=== PATIENT | male | born 1975 | race Caucasian/White ===

== ENCOUNTER 2020-11-14 13:22 | Emergency (ER) | payer OTHER, SELFPAY ==
--- NOTE | ~2020-11-14 | XR_ITS ---
EXAMINATION: XR THORACIC SPINE CLINICAL INFORMATION: Posterior back/rib cage pain. COMPARISON: None TECHNIQUE: 3 views of the thoracic spine were obtained. FINDINGS: There is smooth S-shaped scoliosis of dorsolumbar spine. Thoracic kyphosis is maintained normal. No visible acute fracture, dislocation or lytic process seen. The paravertebral soft tissues are normal. XR/XR thoracic spine 3V IMPRESSION: Mild scoliosis of dorsal lumbar spine. No visible acute fracture or dislocation seen.
--- NOTE | ~2020-11-14 | XR_ITS ---
EXAMINATION: XR RIBS, LEFT CLINICAL INFORMATION: Posterior back and rib cage pain COMPARISON: None TECHNIQUE: 3 views of the left ribs were obtained. PA film of the chest. FINDINGS: Lungs are clear. No consolidation, pneumothorax, or pleural effusion. The cardiomediastinal silhouette and pulmonary vasculature are normal. Osseous structures are unremarkable. Ribs are intact. No fractures are identified. XR/XR ribs LT min 3V w CXR1V IMPRESSION: Unremarkable examination.
[2020-11-14 14:01] VITALS: BP 109/77; PULSE 67; RESP 16; TEMP 36.6; O2SAT 97; BMI 26.2
[2020-11-14] MEDS: Cyclobenzaprine HCl 10 MG TABLET PO (14:38)
[2020-11-14] MEDS: NaPROXEN 500 MG TABLET PO (14:38)
--- NOTE | 2020-11-14 15:20 | ED_ITS ---
HPI - Back Pain/Injury General Chief Complaint: Back Pain/Injury Stated Complaint: side pain Time Seen by Provider: 11/14/20 14:12 Source: patient and family (Significant other at bedside) Mode of arrival: ambulatory Limitations: language barrier (gambian speaking ) History of Present Illness HPI Narrative: 44-year-old male presenting to the ED with complaints of mid left-sided back pain intermittently over the past few days worse today. Reports that it is worse with movement. 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 MD elicited complaint: back pain Onset (ago): day(s) Timing: intermittent Severity: moderate Similar Symptoms Previously: No Quality: aching Location: left upper back Radiation: none Exacerbating factors: movement and lifting Relieving factors: immobilization Context: while lifting, turning/twisting and bending Associated symptoms: denies other symptoms Related Data Previous Rx's Medication Instructions Recorded acetaminophen 500 mg tablet 1,000 mg PO QID PRN #14 tab 11/14/20 (Tylenol Extra Strength) cyclobenzaprine 10 mg tablet 10 mg PO Q8H #10 tab 11/14/20 lidocaine HCl 4 % topical cream 1 appl TOPICAL BID PRN #120 g 11/14/20 (Aspercreme (lidocaine HCl)) naproxen 500 mg tablet 500 mg PO BID PRN #10 tab 11/14/20 Allergies Allergy/AdvReac Type Severity Reaction Status Date / Time No Known Allergies Allergy Verified 11/14/20 14:03 Review of Systems Review of Systems: Constitutional : No trauma, No Weight loss, No Fever, No Chills, ENT/Mouth : No Hearing loss, No Ear Pain, No Nasal Congestion, No Sinus Pain, No Hoarseness, No sore throat, No Rhinorrhea, No Swallowing Difficulty Cardiovascular : No Chest Pain, No SOB Respiratory : No Cough, No Dyspnea Gastrointestinal : No Nausea, No Vomiting, No Diarrhea, No abdominal Pain, No Hematochezia, No Melena Genitourinary : No Dysuria, No Urinary Frequency, No Hematuria, No Urinary or Bowel Incontinence/retention Musculoskeletal : + Back pain, No neck pain, No joint stiffness, No joint swelling Skin : No Skin Lesions, No rash or signs of infection Neuro : No Weakness, No radiation, No Numbness, No Paresthesias, No headache, no loss of bowel or bladder incontinence, no saddle anesthesia, Focal weakness, No radiation Denies history of IV drug usage. Yes all other systems are reviewed and are negative [facility] Past Medical History Attestation statement: The following information was validated with the patient. Medical History No known health problems Social History Social History Advance Directives: No Advance Directives Information Provided: No Physical Exam Vital Signs: Vital Signs: Last Vital Signs Temp 97.8 F 11/14/20 14:01 Pulse 67 11/14/20 14:01 Resp 16 11/14/20 14:01 BP 109/77 11/14/20 14:01 Pulse Ox 97 11/14/20 14:01 Body Mass Index 26.2 vital signs have been reviewed as normal and appeared to be correct. Blood pressure normal. Heart rate normal. Respiration rate normal. Temperature normal. Oxygen saturation normal. Appearance: Alert. Oriented X3. No acute distress. Head: Normal external exam. Normocephalic. Atraumatic. Eyes: PERRLA. EOMI. Conjunctiva and sclera normal. Eyelids normal. ENT: Pharynx normal. Uvula midline. Moist mucous membranes. Neck: Normal inspection. Neck supple. FROM. No adenopathy. Thyroid Normal. No meningeal signs. No neck mass noted. CVS: Normal heart rate and rhythm. Heart sound normal. No murmurs noted. Pulses normal throughout. Respiratory: No respiratory distress. Painless inspiration. Breath sounds normal. No wheezes/rales/rhonchi noted. Chest nontender. No accessory muscle usage noted or decreased air movement noted. Abdomen: Soft and nontender. Bowel sounds normal in all 4 quadrants. No distention noted. No organomegaly noted. No visible injury noted. Back: No CVA tenderness. Full range of motion noted. No obvious deformities, or edema. Mild para-spinal muscular tenderness from thoracic to lumbar region to coccyx. Full ROM in back and lower extremities. 5/5 strength hip extension/flexion, abduction, adduction. Mild Lumbar pain with hip flexion against resistance. Straight leg raise test negative on right; Straight leg raise test negative on left; Reflexes normal ankle and knee bilaterally; EHL motor strength normal bilaterally. No rashes/lesion/induration/fluctuance or signs infection noted. Skin: Skin warm and dry. Normal skin color. Normal skin turgor. No rashes/lesions/lacerations noted. Extremities: No lower extremity edema. Extremities exhibit normal range of motion. Extremities nontender. Neuro: Oriented X 3. No motor deficit. No sensory deficit. Reflexes normal. Patient has a normal steady gait. Course Course Course Narrative: Pt c likely muscular pain, but could be herniated disc. Neuro exam shows no deficits. Not c/w AAA/epidural abscess/dissection.No high risk Hx (Incont, fever, immunosupp, recent surgery/LP, coag, signif trauma, wt loss, puls mass, hx/o Ca, TB, or IVDU) to warrant MRI/CT today. Not c/w Py matthew/UTI/kidney stone/spinal fx. Not cauda equina syndrome. X-ray obtained and negative for any acute processes. will d/c meds and f/u. MDM - Back Pain/Injury Medical Records Attestation: I reviewed the patient's medical records. Imaging Data Rib/thoracic x-ray: Attestation: I personally reviewed and interpreted this imaging study as follows: Radiologist's impression: FINDINGS: Lungs are clear. No consolidation, pneumothorax, or pleural effusion. The cardiomediastinal silhouette and pulmonary vasculature are normal. Osseous structures are unremarkable. Ribs are intact. No fractures are identified. XR/XR ribs LT min 3V w CXR1V IMPRESSION: Unremarkable examination. FINDINGS: There is smooth S-shaped scoliosis of dorsolumbar spine. Thoracic kyphosis is maintained normal. No visible acute fracture, dislocation or lytic process seen. The paravertebral soft tissues are normal. XR/XR thoracic spine 3V IMPRESSION: Mild scoliosis of dorsal lumbar spine. No visible acute fracture or dislocation seen. Discharge Plan Discharge Clinical Impression: Thoracic back pain Patient Disposition: Home, Self-Care Instructions: Thoracic Pain (ED), Back Pain (ED) Prescriptions: New lidocaine HCl [Aspercreme (lidocaine HCl)] 4 % cream 1 appl topical BID PRN (Reason: pain) Qty: 120 RF: 0 cyclobenzaprine 10 mg tablet 10 mg PO Q8H Qty: 10 RF: 0 acetaminophen [Tylenol Extra Strength] 500 mg tablet 1,000 mg PO QID PRN (Reason: fever or pain) Qty: 14 RF: 0 naproxen 500 mg tablet 500 mg PO BID PRN (Reason: pain) Qty: 10 RF: 0 Referrals: Daron Barragan MD [Primary Care Provider] - 2 days Stand Alone Forms: Work/School Release Print Language: Faroese
== END 2020-11-14 15:33 | disposition home or self-care (01) ==
PROVIDERS: Emergency Provider Emergency Medicine; PCP Internal Medicine
DX: M54.6 Pain in thoracic spine (principal); R07.81 Pleurodynia; Z79.899 Other long term (current) drug therapy
CPT/HCPCS: 71101; 72072; 99283

== ENCOUNTER 2021-03-31 08:27 | Outpatient (REF) | payer OTHER, SELFPAY ==
--- NOTE | ~2021-03-31 | FL_ITS ---
EXAMINATION: XR FLUOROSCOPY UPPER GI WITH AIR CLINICAL INFORMATION: Noncardiac chest pain. COMPARISON: None TECHNIQUE: Air-contrast upper GI examination. FINDINGS: There is normal apposition of the vocal cords while saying E. There is normal elevation of the soft palate while saying candy. Patient swallowed a combination of thin and thick barium and half-inch diameter barium tablet without difficulty. There is no evidence of nasopharyngeal reflux or tracheal aspiration. No Zenker's diverticulum. There is normal esophageal motility without persistent stricture or ulceration. No gastroesophageal reflux was elicited with water siphon test. No hiatal hernia. The stomach demonstrates normal distensibility without abnormal mass or ulceration. There was no delay in gastric emptying. The duodenal bulb and sweep appeared unremarkable. FLUOROSCOPY TIME: 2.3 minutes DOSE AREA PRODUCT: 11.015 Gy-cm2 (arango-centimeter squared) FL/FL upper GI w air IMPRESSION: Normal upper GI examination.
== END 2021-03-31 08:28 | disposition home or self-care (01) ==
LOC: HO.XRAY 08:27
PROVIDERS: Visit Provider Internal Medicine
DX: K29.60 Other gastritis without bleeding (principal)
CPT/HCPCS: 74246

== ENCOUNTER 2021-04-08 08:01 | Outpatient (REF) | payer OTHER, SELFPAY ==
[2021-04-08 10:01] LABS: Binax Internal Control QC Valid; Binax Lot number: 9864; Binax Now Covid-19 Ag Positive (Negative)
== END 2021-04-08 08:02 | disposition home or self-care (01) ==
LOC: HO.LAB 08:01
PROVIDERS: Visit Provider Internal Medicine
DX: Z20.822 Contact with and (suspected) exposure to COVID-19 (principal)
CPT/HCPCS: 36415; C9803